=== PATIENT | male | born 2005 | race Caucasian/White ===

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

== ENCOUNTER 2025-09-10 11:27 | Emergency (ER) | payer SELFPAY ==
[2025-09-10 11:38] VITALS: BP 140/63; PULSE 58; RESP 16; TEMP 36.4; O2SAT 100; BMI 25.1
--- NOTE | 2025-09-10 11:42 | ED.MALEGU ---
HPI - Male Genitourinary General Chief complaint: Urogenital-Male Stated complaint: General Medical Time Seen by Provider: 09/10/25 15:10 Source: patient Mode of arrival: ambulatory Limitations: no limitations History of Present Illness ED Provider: Joaquin Saini HPI Narrative: 19 yold male presents to the ED for unprotected sexual activity and now has dysuria. Patient states possible lesions on penis Related Data Previous Rx's ?Medication ?Instructions ?Recorded doxycycline hyclate 100 mg capsule 100 mg PO BID #14 caps 09/10/25 metronidazole 500 mg tablet 500 mg PO BID #14 tabs 09/10/25 Allergies Allergy/AdvReac Type Severity Reaction Status Date / Time No Known Allergies (No Known Allergy Verified 09/10/25 11:38 Allergies*) PMFSH Social History Social History Advance Directives: No Advance Directives Information Provided: No Do you have a plan to hurt others: No Plan Physical Exam Vital Signs: Vital Signs: Last Vital Signs Temp 97.5 F 09/10/25 16:22 Pulse 58 09/10/25 16:22 Resp 16 09/10/25 16:22 BP 140/63 H 09/10/25 16:22 Pulse Ox 100 09/10/25 16:22 O2 Del Method Room Air 09/10/25 11:38 BMI result Body Mass Index 25.1 Const: General: cooperative, healthy appearing, comfortable, no acute distress, well developed, alert, awake and Physically active Orientation/consciousness: patient oriented x3 HEENT: Head: Yes normal to inspection, Yes No palpable skull fracture present, Yes normocephalic and Yes atraumatic Eyes: General: appearance normal, both eyes and all related structures Neck: Neck: Yes normal visual inspection, Yes full ROM, Yes no lymphadenopathy, Yes no meningeal signs, Yes trachea midline, Yes supple, No anterior neck swelling and No tender Chest: Chest palpation & inspection: normal inspection of the chest and normal palpation of entire chest wall Resp: Effort & Inspection: normal respiratory effort and able to speak in complete sentences Auscultation: clear to auscultation bilaterally Cardio: Jugular venous distension: no JVD Heart sounds: S1 normal heart sound present and S2 normal heart sound present GI: Palpation (GI): Soft to palpation, not firm, nontender and no guarding : General: Yes no CVA tenderness Male General Exam: Yes normal external exam Penis: normal penis Meatus: meatus normal Scrotum: scrotum normal Testes: Testes normal Back/Spine/Pelvis: Back: no CVA tenderness and No back tenderness Skin: General skin exam: no rashes or lesions noted, elasticity normal and turgor normal Neuro: General: patient oriented x3, gait normal, tone normal, moves all extremities, Normal light touch and pain sensation, no meningeal signs, no focal motor deficits, CN's II-XI intact bilaterally and normal sensation to monofilament Extrem: General: Yes normal to inspection, Yes full ROM and Yes capillary refill normal Psych: Appearance: grossly normal, well kempt and not disheveled Medications Administered Discontinued Medications Generic Name Dose Route Start Last Admin Trade Name Freq PRN Reason Stop Dose Admin Penicillin G Benzathine 2,400,000 unit 09/10/25 15:23 09/10/25 15:51 Penicillin G Benzathine 2,400,000 Unit/4 Ml Syringe IM 09/10/25 15:24 2,400,000 unit ONCE ONE Administration Medical Decision Making Medical Decision Making [facility] Narrative: RMJordy; 19-year-old male presents to the ED dysuria and penile lesions after unprotected sex with a new partner. Patient states no history of STIs. Labs UA ordered. 3:45pm: Patient is positive for chlamydia. Patient then states his partner told him she tested positive for STI that is start with the letter T can not tunnel with his Trichomonas or tripped him for syphilis. Patient is given penicillin G and will be discharged with doxycycline and metronidazole. Herpes viral swab ordered. And done. No obvious lesions on exam Differential Diagnosis Differential Diagnoses: The differential diagnosis associated with the presentation includes (STI) Admission/Observation Consideration of admission/observation: Escalation of care including admission/observation considered Lab Data [facility] Lab Attestation statement: I reviewed the patient's lab results. 09/10/25 11:57 09/10/25 11:57 Labs: Lab Results 09/10/25 Range/Units 11:57 WBC 6.7 (4.8-10.8) X10*3/uL RBC 4.68 (4.60-5.80) X10*6/uL Hgb 14.4 (14.0-18.0) g/dl Hct 40.5 L (42.0-52.0) % MCV 86.5 (80.0-98.0) fL MCH 30.8 (27.0-33.0) pg MCHC 35.6 (31.0-36.0) g/dl RDW 12.6 (11.0-16.0) % Plt Count 238 (160-400) X10*3/uL MPV 9.1 L (9.4-12.4) fL Immature Gran % (Auto) 0.3 (0.0-0.4) % Neut % (Auto) 64.1 (45-73) % Lymph % (Auto) 23.6 (20-40) % [place] % (Auto) 8.2 (2-11) % Eos % (Auto) 3.1 (0-4) % Baso % (Auto) 0.7 (0-2) % Lymph # (Auto) 1.6 (1.2-4.9) X10*3/uL [place] # (Auto) 0.6 (0.1-1.2) X10*3/uL Eos # (Auto) 0.2 (0.0-0.4) X10*3/uL Baso # (Auto) 0.1 (0.0-0.2) X10*3/uL Abs Immat Gran (auto) 0.02 (0.00-0.03) X10*3/uL Absolute Neuts (auto) 4.3 (2.0-8.3) x10*3/uL Absolute Nucleated RBC 0.000 (0.0-0.012) X10*3/uL Nucleated RBC % (auto) 0.0 (0.0-0.2) /100WBC Sodium 141 (135-145) mmol/L Potassium 4.0 (3.3-5.1) mmol/L Chloride 107 (96-108) mmol/L Carbon Dioxide 29 (22-29) mmol/L Anion Gap 9 L (12-20) BUN 9 (9-16) mg/dL Creatinine 0.77 (0.5-1.4) mg/dL Estim Creat Clear Calc 159.3 Estimated GFR > 60 Random Glucose 103 (60-115) mg/dL Calcium 9.2 (8.4-10.2) mg/dL Total Bilirubin 0.3 (0.0-1.0) mg/dL AST 22 (5-37) U/L ALT 21 (0-40) U/L Alkaline Phosphatase 49 (39-117) U/L Total Protein 7.2 (6.5-8.0) g/dL Albumin 4.6 (3.5-5.0) g/dL Urine Color Yellow Urine Appearance Clear Urine pH 7.0 (5.0-9.0) Ur Specific [place] 1.015 (1.005-1.025) Urine Protein Negative (Neg-Trace) mg/dL Urine Glucose (UA) Negative (Negative) mg/dL Urine Ketones Negative (Negative) mg/dL Urine Blood Negative (Negative) Urine Nitrite Negative (Negative) Ur Leukocyte Esterase Negative (Negative) Ur N gonorrhoeae DNA (PCR) NOT DETECTED (Not Detect.) T.pallidum Ab (EIA) Reactive A (Nonreactive) Ur Chlamydia DNA (PCR) DETECTED A (Not Detect.) Independent Historian Clinical information obtained from an independent historian. History obtained from or confirmed by: Other (Patient is) Prescription Management I considered prescription management with: Antibiotic Discharge Plan Discharge Clinical Impression: Chlamydia, STI (sexually transmitted infection) Patient Disposition: Home, Self-Care Instructions: Sexually Transmitted Diseases (ED), Male Condom Use (ED), Safe Sex Practices (ED) Additional Instructions: Recommend no sexual activity for the next 7 days after treatment. Recommend follow up with [facility] for HIV testing. You will be discharged with oral antibiotics. Return to the ED immediately for testicular pain, penile discharge, penile lesions, abdominal pain, nausea, vomiting, flank pain, fever, chills, any other concerning symptoms. Prescriptions: New doxycycline hyclate 100 mg capsule 100 mg PO BID Qty: 14 0RF metronidazole 500 mg tablet 500 mg PO BID Qty: 14 0RF Stand Alone Forms: Work/School Release Interventions: ED Discharge Assessment Last Done: 09/10/25 16:22 Discharge Date/Time: 09/10/25 16:24 Print Language: Kenyan
[2025-09-10 12:02] LABS: MANUAL DIFF FLAG NO
[2025-09-10 12:07] LABS: Hematocrit 40.5 % (42.0-52.0); Hemoglobin 14.4 g/dl (14.0-18.0); Imm Gran Abs Auto 0.02 X10*3/uL (0.00-0.03); Imm Gran Pct Auto 0.3 % (0.0-0.4); Lymphocytes Absolute Auto 1.6 X10*3/uL (1.2-4.9); Mean Corpuscular HGB Conc 35.6 g/dl (31.0-36.0); Mean Corpuscular Hemoglobin 30.8 pg (27.0-33.0); Mean Corpuscular Volume 86.5 fL (80.0-98.0); NRBC Abs Auto 0.000 X10*3/uL (0.0-0.012); NRBC Pct Auto 0.0 /100WBC (0.0-0.2); Platelet Count 238 X10*3/uL (160-400); Red Blood Count 4.68 X10*6/uL (4.60-5.80); White Blood Count 6.7 X10*3/uL (4.8-10.8)
[2025-09-10 12:08] LABS: Appearance Urine Clear; Glucose Urine UA Negative (Negative); PH 7.0 (5.0-9.0); Specific Gravity - Urine 1.015 (1.005-1.025)
[2025-09-10 12:30] LABS: Alanine Aminotransferase 21 U/L (0-40); Albumin Level 4.6 g/dL (3.5-5.0); Alkaline Phosphatase 49 U/L (39-117); Anion Gap 9 (12-20); Aspartate Amino Transferase 22 U/L (5-37); Blood Urea Nitrogen 9 mg/dL (9-16); Calcium 9.2 mg/dL (8.4-10.2); Carbon Dioxide 29 mmol/L (22-29); Chloride 107 mmol/L (96-108); Creatinine Clr Calc Pharmacy 159.3; Estimated Glomerular Filt Rate > 60; Potassium 4.0 mmol/L (3.3-5.1); Sodium 141 mmol/L (135-145); Total Protein 7.2 g/dL (6.5-8.0)
[2025-09-10 13:34] LABS: CT PCR Urine DETECTED (Not Detect.); NG PCR Urine NOT DETECTED (Not Detect.)
[2025-09-10 16:22] VITALS: BP 140/63; PULSE 58; RESP 16; TEMP 36.4; O2SAT 100
--- OUTSIDE RECORDS SUMMARY | 2025-09-11 01:25 | XMS_ITS | Clinical Summary ---
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 Role Phone Unavailable Primary Care Provider Unavailabl e Medications cloNIDine (Catapres) 0.1 MG tablet Clonidine 0.1 mg once at night half hour before bed 9 Active ibuprofen 800 MG tablet 1 tablet by oral route 3 times per day 1 Active lisdexamfetamin e (Vyvanse) 30 MG capsule Active Active Problems Problem Noted Date Diagnosed Date Varicocele 10/13/2018 Attention deficit hyperactivity disorder 013 Immunizations Immunization Administration Dates Next Due DTaP 12/18/2009,12/30/2006 DTaP / Hep B / IPV 05/18/2006,03/30/2006, 006 HPV 9-Valent 09/23/2017,03/23/2017 Hep A, ped/adol, 2 dose 04/18/2007,10/18/2006 Hep B, Adolescent or Pediatric 2005 Hib (HbOC) 12/30/2006, 6,03/30/2006,12/29 IPV 12/18/2009 Influenza injectable quadriv alent preservative free 08/01/2019,10/13/2018,07/22/2016 Influenza, IIV3, injectable 07/21/2006 MMRV 12/18/2009,10/08/2006 Meningococcal MCV4P ACYW-135 04/08/2017 Pneumococcal Conjugate PCV 7 12/30/2006, 05/18/2006,03/30/2006,12/29 Tdap 04/08/2017 Social History Tobacco Use Types Packs/Day Years Used Date Smoking Tobacco: Never Assessed Housing Stability Answer Date Recorded What is your housing situation today? I have isha carbajal 07/11/[address] you li ve. Do you have problems with any of the following? Pests such as bugs, ants, or mice 07/11/2023 Food Insecurity Answer Date Recorded Within the past 12 months, y ou worried that your food would run out before you got money to buy more: Never True 2022 Within the past 12 months,th e food you bought just didn't last and you didn't have enough money to get more: Sometimes True 07/29/2023 Transportation Answer Date Recorded In the past 12 months, has l ack of transportation kept you from medical appts, meetings, work or from getting things needed for daily living? No 07/29/2023 Utilities Answer Date Recorded In the past 12 months, has t he electric, gas, oil or water company threatened to shut off services in your home? Yes 07/11/2023 Sex and Gender Information Value Date Recorded Sex Assigned at Male 08/03/2022 10:18 AM EDT Legal Sex Male 10:18 AM EDT Gender Identity Male 08/03/2022 10:18 AM EDT Sexual Orientation Straight 08/03/2022 10 :18 AM EDT Last Filed Vital Signs Vital Sign Reading Time Taken Comments Blood Pressure 120/60 01/03/2021 12:04 AM EDT Pulse 72 01/03/2021 12:04 AM EDT Temperature - - Respiratory Rate - - Oxygen Saturation - - Inhaled Oxygen Concentration - - Weight 83.4 kg (183 lb 12.8 oz) 021 12:04 AM EDT Height 177.8 cm (5' 10 ) 01/03/2021 12: 04 AM EDT Body Mass Index 26.37 01/03/2021 12:04 AM EDT Body Mass Index Percentile 93.93% 01/03 12:04 AM EDT Growth Chart: CDC (Boys, 2-2 0 Years) Plan of Treatment Health Maintenance Due Date Last Done Comments Depression Screening 2005 HIV Screening 2005 Disability Screening 2005 Fluoride Varnish 06/15/2015 12/13/2014 Alcohol/Substance Use Screening 2017 Tobacco Screening 2017 Family Planning (PISQ) 2020 Meningococcal B Vaccine (1 of 2 - Standard) 2021 Hepatitis C Screening 2023 Chlamydia and Gonorrhea Screening 01/23/2024 01/22/2023 SDOH Screening 03/09/2024 03/09/2023 COVID-19 Vaccine ( season) 2025 Influenza Vaccine (#1) 2025 9, 10/13/2018, 07/22/2016, Additional history exists DTaP/Tdap/Td Vaccines (7 - Td or Tdap) 04/08/2027 04/08/2017, 12/18/2009, 12/30/2006, Additional history exists Zoster Vaccines (1 of 2) 2055 RSV Patients and Patients Aged 60 years or older (1 - 1-dose 75+ series) 2080 Hepatitis B Vaccines Completed 05/18/2006, 03/30/2006, 2005, Additional history exists HIB Vaccines Completed 12/30/2006, 05/04, 03/30/2006, Additional history exists Pneumococcal Vaccine: Pediatrics (0 to 5 Years) and At-Risk Patients (6 to 49) Years Aged Out 12/30/2006, 05/18/2006, 03/30/2006, Additional history exists No longer eligible based on patient's age to complete this topic Hepatitis A Vaccines Completed 04/18/2007, 10/18/19 07 IPV Vaccines Completed 12/18/2009, 05/04, 03/30/2006, Additional history exists MMR Vaccines Completed 12/18/2009, 10/08/2006 Varicella Vaccines Completed 12/18/2009, 10/08/2006 Meningococcal Vaccine Aged Out 04/08/2017 No joanne jose roberto eligible based on patient's age to complete this topic HPV Vaccines Completed 09/23/2017, 03/23/2017 RSV under 20 months Aged Out No longe r eligible based on patient's age to complete this topic Rotavirus Vaccines Aged Out No longer eligible based on patient's age to complete this topic Procedures Procedure Name Priority Date/Time Associated Diagnosis Comments TOPICAL APPLICATION OF FLUORIDE VARNISH Routine 12/13/2014 12:00 AM EDT from Last 3 Months or Most Recently Relevant to Health Maintenance Insurance [facility] C3
[2025-09-11 04:09] LABS: Syphilis Screen Reactive (Nonreactive)
--- NOTE | 2025-09-13 12:27 | ED.MALEGU ---
HPI - Male Genitourinary General Chief complaint: Urogenital-Male Stated complaint: General Medical Time Seen by Provider: 09/10/25 15:10 Source: patient Mode of arrival: ambulatory Limitations: no limitations Related Data Previous Rx's ?Medication ?Instructions ?Recorded doxycycline hyclate 100 mg capsule 100 mg PO BID #14 caps 09/10/25 metronidazole 500 mg tablet 500 mg PO BID #14 tabs 09/10/25 Allergies Allergy/AdvReac Type Severity Reaction Status Date / Time No Known Allergies (No Known Allergy Verified 09/10/25 11:38 Allergies*) [facility] Social History Social History Advance Directives: No Advance Directives Information Provided: No Do you have a plan to hurt others: No Plan Physical Exam Vital Signs: Vital Signs: Last Vital Signs Temp 97.5 F 09/10/25 16:22 Pulse 58 09/10/25 16:22 Resp 16 09/10/25 16:22 BP 140/63 H 09/10/25 16:22 Pulse Ox 100 09/10/25 16:22 O2 Del Method Room Air 09/10/25 11:38 BMI result Body Mass Index 25.1 Course Course Course Narrative: 09/13/25 12:27 JUAN Chang: Attempted to contact patient at telephone number provided regarding syphilis results. Patient's mother answered the phone and patient was not available. Advised mother to have the patient call the ED wanda to discuss results. No results were discussed with patient's mother. 3:23 PM 09/13/2025 (Roselyn Chang NP): Patient returned phone call to the ED and was updated on positive syphilis results. He denies any history of syphilis in the past. Advised patient he should return to the emergency department for IM injection of antibiotics as soon as possible. Patient verbalized understanding of this. Mandated reporting completed. Medications Administered Discontinued Medications Generic Name Dose Route Start Last Admin Trade Name Freq PRN Reason Stop Dose Admin Penicillin G Benzathine 2,400,000 unit 09/10/25 15:23 09/10/25 15:51 Penicillin G Benzathine 2,400,000 Unit/4 Ml Syringe IM 09/10/25 15:24 2,400,000 unit ONCE ONE Administration Medical Decision Making Lab Data 09/10/25 11:57 09/10/25 11:57 Labs: Lab Results 09/10/25 Range/Units 11:57 WBC 6.7 (4.8-10.8) X10*3/uL RBC 4.68 (4.60-5.80) X10*6/uL Hgb 14.4 (14.0-18.0) g/dl Hct 40.5 L (42.0-52.0) % MCV 86.5 (80.0-98.0) fL MCH 30.8 (27.0-33.0) pg MCHC 35.6 (31.0-36.0) g/dl RDW 12.6 (11.0-16.0) % Plt Count 238 (160-400) X10*3/uL MPV 9.1 L (9.4-12.4) fL Immature Gran % (Auto) 0.3 (0.0-0.4) % Neut % (Auto) 64.1 (45-73) % Lymph % (Auto) 23.6 (20-40) % [place] % (Auto) 8.2 (2-11) % Eos % (Auto) 3.1 (0-4) % Baso % (Auto) 0.7 (0-2) % Lymph # (Auto) 1.6 (1.2-4.9) X10*3/uL [place] # (Auto) 0.6 (0.1-1.2) X10*3/uL Eos # (Auto) 0.2 (0.0-0.4) X10*3/uL Baso # (Auto) 0.1 (0.0-0.2) X10*3/uL Abs Immat Gran (auto) 0.02 (0.00-0.03) X10*3/uL Absolute Neuts (auto) 4.3 (2.0-8.3) x10*3/uL Absolute Nucleated RBC 0.000 (0.0-0.012) X10*3/uL Nucleated RBC % (auto) 0.0 (0.0-0.2) /100WBC Sodium 141 (135-145) mmol/L Potassium 4.0 (3.3-5.1) mmol/L Chloride 107 (96-108) mmol/L Carbon Dioxide 29 (22-29) mmol/L Anion Gap 9 L (12-20) BUN 9 (9-16) mg/dL Creatinine 0.77 (0.5-1.4) mg/dL Estim Creat Clear Calc 159.3 Estimated GFR > 60 Random Glucose 103 (60-115) mg/dL Calcium 9.2 (8.4-10.2) mg/dL Total Bilirubin 0.3 (0.0-1.0) mg/dL AST 22 (5-37) U/L ALT 21 (0-40) U/L Alkaline Phosphatase 49 (39-117) U/L Total Protein 7.2 (6.5-8.0) g/dL Albumin 4.6 (3.5-5.0) g/dL Urine Color Yellow Urine Appearance Clear Urine pH 7.0 (5.0-9.0) Ur Specific [place] 1.015 (1.005-1.025) Urine Protein Negative (Neg-Trace) mg/dL Urine Glucose (UA) Negative (Negative) mg/dL Urine Ketones Negative (Negative) mg/dL Urine Blood Negative (Negative) Urine Nitrite Negative (Negative) Ur Leukocyte Esterase Negative (Negative) Ur N gonorrhoeae DNA (PCR) NOT DETECTED (Not Detect.) T.pallidum Ab (EIA) Reactive A (Nonreactive) Ur Chlamydia DNA (PCR) DETECTED A (Not Detect.) Discharge Plan Discharge Clinical Impression: Chlamydia, STI (sexually transmitted infection) Patient Disposition: Home, Self-Care Instructions: Sexually Transmitted Diseases (ED), Male Condom Use (ED), Safe Sex Practices (ED) Additional Instructions: Recommend no sexual activity for the next 7 days after treatment. Recommend follow up with [facility] for HIV testing. You will be discharged with oral antibiotics. Return to the ED immediately for testicular pain, penile discharge, penile lesions, abdominal pain, nausea, vomiting, flank pain, fever, chills, any other concerning symptoms. Prescriptions: New doxycycline hyclate 100 mg capsule 100 mg PO BID Qty: 14 0RF metronidazole 500 mg tablet 500 mg PO BID Qty: 14 0RF Stand Alone Forms: Work/School Release Interventions: ED Discharge Assessment Last Done: 09/10/25 16:22 Discharge Date/Time: 09/10/25 16:24 Print Language: Zambian
[2025-09-18 07:41] LABS: T.Pallidum Particle Agg Test Non-Reactive (Nonreactive)
== END 2025-09-10 16:24 | disposition home or self-care (01) ==
PROVIDERS: Physician Assistant; Emergency Provider Student in an Organized Health Care Education/Training Program
DX: A56.8 Sexually transmitted chlamydial infection of other sites (principal)
CPT/HCPCS: 36415; 80053; 81003; 85025; 86592; 86780; 87255; 87491; 87591; 96372; 99283; 99284; J0561